=== PATIENT | female | born 1970 | race Caucasian/White ===

== ENCOUNTER → 2024-06-14 14:01 | Outpatient (REF) | payer OTHER, SELFPAY | LOC: HWRCS 14:01 | PROVIDERS: ATTENDING PHYSICIAN Internal Medicine; FAMILY PHYSICIAN Family Medicine | DX: I10 Essential (primary) hypertension (principal); I44.0 Atrioventricular block, first degree; I44.4 Left anterior fascicular block; I77.810 Thoracic aortic ectasia | CPT/HCPCS: 93306 ==